=== PATIENT | female | born 1950 | race African-American/Black ===

== ENCOUNTER → 2016-11-09 | Outpatient (CLI) | payer OTHER ==
[~2016-11-09] MED LIST: ALBUTEROL0.09 MG/A2; ALBUTEROL0.09 MG/A2 INH; ALLERGY RELIEF10 M1 PO; BACTRIM DS 8001 TA1 PO; CIPRO250 MG PO; DOXYCYCLINE100 M3 PO; EYE DROPS 15 ML15 ML OP; KEFLEX500 MG PO; LEVOFLOXACIN500 MG PO; LISINOPRIL2.5 MG; PREDNISONE20 MG PO; ROBITUSSIN AC 10 MG/ PO; VICODIN 5/500 505 MG PO
[2016-11-09 11:41] LABS: EST GLOM FILT AFRICAN AMERICAN > 60 ml/min
== END | disposition home or self-care (01) ==
LOC: MRI 10:52
PROVIDERS: Radiology Diagnostic Radiology
DX: R90.89 Other abnormal findings on diagnostic imaging of central nervous system (principal); R20.0 Anesthesia of skin; R51 Headache

== ENCOUNTER 2018-07-20 14:41 | Inpatient (IN) | payer OTHER, MEDICARE ==
[2018-07-20] VITALS (9 sets, daily range): BP systolic 153–200; BP diastolic 81–110
[~2018-07-20] VITALS: Ht 154.9 cm; Wt 82.1 kg
--- NOTE | ~2018-07-20 | EKG ---
[place], [place] ELECTROCARDIOGRAM REPORT NAME: NELL JIMENEZ UNIT #: [id number] ROOM: 519 DOCTOR: VINCE DRAFT REPORT BIRTHDATE: [birth year] [facility] Test Date: 2018-07-20 Test Time: 18:48:13 Pat Name: NELL JIMENEZ Department: Room: [facility] Gender: F [employer] Former: Corinna Zambrano : 1950 Requested By: DESTIN CHOW Order Number: [id number] Reading MD: Elijah Boland MD Measurements Intervals [place] Rate: 102 P: 66 ND: 144 QRS: 58 QRSD: 78 T: 8 QT: 365 QTc: 476 Interpretive Statements Sinus tachycardia Probable left atrial enlargement Borderline T wave abnormalities Baseline wander in lead(s) V6 Electronically Signed On 07-20-2018 18:31:22 PST by Elijah Boland MD CM:EKGRPT:ELECTROCARDIOGRAM REPORT [id number] DESTIN LUCAS DRAFT REPORT DESTIN CHOW DO
[2018-07-20 15:22] LABS: HEMATOCRIT 45.7 % (37.0-47.0); HEMOGLOBIN 14.9 g/dl (12.0-16.0); MEAN CELL VOLUME 89.1 fl (81.0-99.0); MEAN CORPUSCULAR HGB CONC 32.6 g/dl (33.0-37.0); MEAN PLATELET VOLUME 10.4 fl (9.6-12.3); PLATELET COUNT AUTOMATED 219 10*3/uL (130-400); RED BLOOD COUNT 5.13 10*6/uL (4.10-5.10); RED CELL DISTRI WIDTH 13.1 % (0-14.5); WHITE BLOOD COUNT 7.9 10*3/uL (4.8-10.8)
[2018-07-20 15:39] LABS: ALBUMIN 3.7 gm/dl (3.1-4.5); ALKALINE PHOSPHATASE 118 U/L (45-117); BUN 13 mg/dl (7-24); CHLORIDE 108 mmol/L (98-107); CREATININE 0.88 mg/dL (0.55-1.02); LIPASE 50 U/L (73-393); POTASSIUM 3.7 mmol/L (3.5-5.1); SGOT/AST 16 IU/L (3-35); SGPT/ALT 18 U/L (12-78); SODIUM 141 mmol/L (136-145); TOTAL PROTEIN 7.7 gm/dL (6.4-8.2)
[2018-07-20 15:44] LABS: PLATELET SUFFICIENCY NORMAL (NORMAL); TOTAL CELLS COUNTED 100 #CELLS
[2018-07-20] MEDS ORDERED: ZESTORETIC 20-1 EACH PO (16:24)
[2018-07-20 17:03] LABS: BILIRUBIN NEGATIVE (NEGATIVE); BLOOD TRACE-INTACT (NEGATIVE); CLARITY CLEAR (CLEAR); COLOR YELLOW (YELLOW); GLUCOSE NEGATIVE (NEGATIVE); KETONE TRACE (NEGATIVE); LEUKO ESTERASE NEGATIVE (NEGATIVE); NITRITE NEGATIVE (NEGATIVE); PH 5.5 (5.0-9.0); UROBILINOGEN 0.2 E.U./dl (0.2-1.0)
[2018-07-20 17:11] LABS: BACTERIA 1+; WBC 0-2 wbc/hpf (0-5)
[2018-07-21] VITALS: BP 157/88
[2018-07-21 07:33] LABS: BASO % 0.2 % (0.0-1.0); LYMPH # 0.7 10*3/uL (1.3-4.4); LYMPH % 16.2 % (27.0-41.0); MEAN CELL VOLUME 89.5 fl (81.0-99.0); MEAN CORPUSCULAR HGB 28.8 pg (27.0-31.0); MEAN CORPUSCULAR HGB CONC 32.1 g/dl (33.0-37.0); MEAN PLATELET VOLUME 10.6 fl (9.6-12.3); MONO # 0.4 10*3/uL (0.1-1.0); MONO % 9.1 % (3.0-9.0); NEUT % 74.3 % (47.0-73.0); PLATELET COUNT AUTOMATED 204 10*3/uL (130-400); RED BLOOD COUNT 4.38 10*6/uL (4.10-5.10); RED CELL DISTRI WIDTH 13.3 % (0-14.5); WHITE BLOOD COUNT 4.1 10*3/uL (4.8-10.8)
[2018-07-21 07:39] LABS: HEMATOCRIT 39.2 % (37.0-47.0); HEMOGLOBIN 12.6 g/dl (12.0-16.0)
[2018-07-21 07:51] LABS: ALKALINE PHOSPHATASE 83 U/L (45-117); BUN 10 mg/dl (7-24); CHLORIDE 111 mmol/L (98-107); CHOLESTEROL 151 mg/dL (<200); CREATININE 0.89 mg/dL (0.55-1.02); FREE T4 1.04 ng/dl (0.76-1.46); HDL CHOLESTEROL 59 mg/dl (40-60); LDL CHOLESTEROL 79 mg/dL (9-159); PHOSPHOROUS 3.2 mg/dL (2.5-4.9); POTASSIUM 3.4 mmol/L (3.5-5.1); SGOT/AST 12 IU/L (3-35); SGPT/ALT 18 U/L (12-78); SODIUM 142 mmol/L (136-145); TOTAL PROTEIN 6.2 gm/dL (6.4-8.2); TRIGLYCERIDES 63 mg/dl (<150); VLDL CHOLESTEROL 13 mg/dL (6-40)
[2018-07-21 07:56] LABS: THYROID STIM HORMONE (HS) 0.448 uIU/ml (0.358-4.75)
[2018-07-21 08:00] VITALS: BP 122/82
[2018-07-21 08:07] LABS: ACT PARTIAL THROMBO TIME 27.8 SECONDS (20.8-31.5)
[2018-07-21 08:30] LABS: VITAMIN D, 25-HYDROXY 9.4 ng/mL (30-100)
[2018-07-21] MEDS ORDERED: HYDR12.5C PO (10:46)
[2018-07-21] MEDS ORDERED: VITAMIN D50000 UNIT PO (10:46)
[2018-07-21] MEDS ORDERED: AMLODIPINE BESYL5 MG PO (10:46)
[2018-07-21] MEDS ORDERED: CYCLOBENZAPRINE5 M3 PO (10:46)
== END 2018-07-21 11:50 | disposition home or self-care (01) | DRG 392 ==
LOC: ED 14:41 → 5E 17:57 → EDHOLD 17:57 → 5E 18:46
PROVIDERS: Family Medicine; Nurse Practitioner Family
DX: A08.4 Viral intestinal infection, unspecified (principal); I16.1 Hypertensive emergency; I10 Essential (primary) hypertension; E87.8 Other disorders of electrolyte and fluid balance, not elsewhere classified; R73.9 Hyperglycemia, unspecified; R74.8 Abnormal levels of other serum enzymes; R31.9 Hematuria, unspecified; R82.71 Bacteriuria; J45.909 Unspecified asthma, uncomplicated; M19.90 Unspecified osteoarthritis, unspecified site; E66.9 Obesity, unspecified; Z82.49 Family history of ischemic heart disease and other diseases of the circulatory system; Z82.5 Family history of asthma and other chronic lower respiratory diseases; Z98.42 Cataract extraction status, left eye; Z98.41 Cataract extraction status, right eye; Z82.61 Family history of arthritis; Z80.42 Family history of malignant neoplasm of prostate; Z79.899 Other long term (current) drug therapy; Z91.041 Radiographic dye allergy status; Z68.34 Body mass index [BMI] 34.0-34.9, adult

== ENCOUNTER → 2019-03-24 | Outpatient (CLI) | payer OTHER ==
[~2019-03-24] MED LIST changes: +AMLODIPINE BESYL5 MG PO; +CYCLOBENZAPRINE5 M3 PO; +HYDR12.5C PO; +VITAMIN D50000 UNIT PO; +ZESTORETIC 20-1 EACH PO
== END | disposition home or self-care (01) ==
LOC: ORTHO 01:37
DX: M17.11 Unilateral primary osteoarthritis, right knee (principal)

== ENCOUNTER → 2019-04-24 | Outpatient (CLI) | payer OTHER | END | disposition home or self-care (01) | LOC: MRI 10:47 | DX: M17.11 Unilateral primary osteoarthritis, right knee (principal) ==

== ENCOUNTER → 2020-02-06 | Outpatient (CLI) | payer OTHER | END | disposition home or self-care (01) | LOC: COVID19 08:28 | DX: U07.1 COVID-19 (principal) ==

== ENCOUNTER → 2023-12-23 | Outpatient (CLI) | payer OTHER ==
[2023-12-23 12:29] LABS: BUN 11 mg/dl (9-23); CHLORIDE 107 mmol/L (98-107); POTASSIUM 3.8 mmol/L (3.4-5.1)
== END | disposition home or self-care (01) ==
LOC: LAB 09:52
PROVIDERS: Family Medicine; ATTEND Nurse Practitioner Family
DX: E87.5 Hyperkalemia (principal); L65.9 Nonscarring hair loss, unspecified

== ENCOUNTER 2024-07-27 04:38 | Emergency (ER) | payer OTHER ==
[~2024-07-27] VITALS: Wt 72.3 kg
[2024-07-27 06:21] LABS: ALKALINE PHOSPHATASE 113 U/L (46-116); BUN 13 mg/dl (9-23); CHLORIDE 104 mmol/L (98-107); POTASSIUM 3.9 mmol/L (3.4-5.1); SGPT/ALT 12 U/L (5-49); TOTAL PROTEIN 7.1 gm/dL (6.0-8.0)
[2024-07-27] MEDS ORDERED: LORazepam 1 MG TAB PO ONE (06:25)
[2024-07-27 06:30] LABS: BASO # 0.1 10*3/uL (0.0-0.1); EOS # 0.3 10*3/uL (0.0-0.4); EOS % 5.2 % (1.0-4.0); HEMATOCRIT 43.1 % (37.0-47.0); MEAN CELL VOLUME 90.2 fl (81.0-99.0); MEAN CORPUSCULAR HGB CONC 31.1 g/dl (33.0-37.0); MONO # 0.4 10*3/uL (0.1-1.0); MONO % 5.9 % (3.0-9.0); NEUT # 4.1 10*3/uL (2.3-7.9); NEUT % 66.3 % (47.0-73.0); PLATELET COUNT AUTOMATED 272 10*3/uL (130-400); RED BLOOD COUNT 4.78 10*6/uL (4.10-5.10); RED CELL DISTRI WIDTH 12.8 % (0-14.5); WHITE BLOOD COUNT 6.1 10*3/uL (4.8-10.8)
[2024-07-27] MEDS ORDERED: ASPIRIN 325 MG TAB PO ONE (07:40)
[2024-07-27 07:53] VITALS: BP 144/79
[2024-07-27] MEDS ORDERED: Dextrose/Nitroglycerin 250 ML IV SCH (08:00)
[2024-07-27] MEDS ORDERED: ACETAMINOPHEN 500 MG TAB PO ONE (09:10)
== END 2024-07-27 10:40 | disposition short-term general hospital (02) ==
LOC: ED 04:38
PROVIDERS: Internal Medicine
DX: I20.0 Unstable angina (principal); M79.602 Pain in left arm; J45.909 Unspecified asthma, uncomplicated; R06.02 Shortness of breath; R51.9 Headache, unspecified; I10 Essential (primary) hypertension; Z91.041 Radiographic dye allergy status; Z90.89 Acquired absence of other organs

== ENCOUNTER 2024-08-13 09:45 | Emergency (ER) | payer OTHER ==
[~2024-08-13] VITALS: Ht 172.7 cm; Wt 69.9 kg
[2024-08-13] MEDS ORDERED: SODIUM CHLORIDE 0.9% 1,000 ML IV ONE (10:00)
[2024-08-13] MEDS ORDERED: Ondansetron Hydrochloride 4 MG/2 ML VIAL IV ONE (10:05)
[2024-08-13] MEDS ORDERED: MORPHINE Sulfate 2 MG/ML SYR IV ONE (10:05)
[2024-08-13 10:09] VITALS: BP 155/72
[2024-08-13 10:15] LABS: BASO # 0.1 10*3/uL (0.0-0.1); BASO % 0.9 % (0.0-1.0); EOS # 0.4 10*3/uL (0.0-0.4); EOS % 6.7 % (1.0-4.0); HEMATOCRIT 39.7 % (37.0-47.0); MEAN CELL VOLUME 88.6 fl (81.0-99.0); MEAN CORPUSCULAR HGB 28.6 pg (27.0-31.0); MEAN CORPUSCULAR HGB CONC 32.2 g/dl (33.0-37.0); MEAN PLATELET VOLUME 9.9 fl (9.6-12.3); MONO # 0.4 10*3/uL (0.1-1.0); MONO % 6.3 % (3.0-9.0); NEUT # 3.9 10*3/uL (2.3-7.9); NEUT % 67.1 % (47.0-73.0); PLATELET COUNT AUTOMATED 364 10*3/uL (130-400); RED BLOOD COUNT 4.48 10*6/uL (4.10-5.10); RED CELL DISTRI WIDTH 13.6 % (0-14.5); WHITE BLOOD COUNT 5.9 10*3/uL (4.8-10.8)
[2024-08-13 10:37] LABS: ALKALINE PHOSPHATASE 96 U/L (46-116); BUN 10 mg/dl (9-23); CHLORIDE 105 mmol/L (98-107); SGPT/ALT 15 U/L (5-49); TOTAL PROTEIN 7.1 gm/dL (6.0-8.0)
[2024-08-13] MEDS ORDERED: Enoxaparin Sodium 80 MG/0.8 ML SYR SC ONE (11:20)
[2024-08-13] MEDS ORDERED: ASPIRIN, CHEWABLE 81 MG TAB PO ONE (11:20)
== END 2024-08-13 15:56 | disposition short-term general hospital (02) ==
LOC: ED 09:45
PROVIDERS: Emergency Medicine
DX: I21.4 Non-ST elevation (NSTEMI) myocardial infarction (principal); M79.602 Pain in left arm; M25.512 Pain in left shoulder; I10 Essential (primary) hypertension; I25.10 Atherosclerotic heart disease of native coronary artery without angina pectoris; E78.5 Hyperlipidemia, unspecified; J45.909 Unspecified asthma, uncomplicated; M19.90 Unspecified osteoarthritis, unspecified site; Z88.8 Allergy status to other drugs, medicaments and biological substances; Z91.041 Radiographic dye allergy status; Z90.89 Acquired absence of other organs; Z98.890 Other specified postprocedural states

== ENCOUNTER 2024-09-12 13:16 | Emergency (ER) | payer OTHER ==
[~2024-09-12] VITALS: Ht 152.4 cm; Wt 65.8 kg
[2024-09-12 13:31] VITALS: BP 136/76
[2024-09-12 13:52] LABS: BASO # 0.1 10*3/uL (0.0-0.1); BASO % 1.2 % (0.0-1.0); EOS # 0.3 10*3/uL (0.0-0.4); EOS % 6.1 % (1.0-4.0); HEMATOCRIT 39.8 % (37.0-47.0); MEAN CELL VOLUME 91.3 fl (81.0-99.0); MEAN CORPUSCULAR HGB 28.9 pg (27.0-31.0); MEAN CORPUSCULAR HGB CONC 31.7 g/dl (33.0-37.0); MEAN PLATELET VOLUME 11.1 fl (9.6-12.3); MONO # 0.4 10*3/uL (0.1-1.0); MONO % 7.3 % (3.0-9.0); NEUT % 58.8 % (47.0-73.0); PLATELET COUNT AUTOMATED 265 10*3/uL (130-400); RED BLOOD COUNT 4.36 10*6/uL (4.10-5.10); RED CELL DISTRI WIDTH 14.8 % (0-14.5); WHITE BLOOD COUNT 5.1 10*3/uL (4.8-10.8)
[2024-09-12 14:12] LABS: BUN 10 mg/dl (9-23); CHLORIDE 105 mmol/L (98-107); POTASSIUM 3.8 mmol/L (3.4-5.1)
[2024-09-12] MEDS ORDERED: PREDNISONE20 M1 PO (14:38)
== END 2024-09-12 14:46 | disposition home or self-care (01) ==
LOC: ED 13:16
PROVIDERS: Emergency Medicine
DX: R07.89 Other chest pain (principal); R06.02 Shortness of breath; I25.2 Old myocardial infarction; I10 Essential (primary) hypertension; J45.909 Unspecified asthma, uncomplicated; E78.5 Hyperlipidemia, unspecified; Z91.041 Radiographic dye allergy status; Z88.8 Allergy status to other drugs, medicaments and biological substances; Z79.899 Other long term (current) drug therapy; Z90.89 Acquired absence of other organs

== ENCOUNTER 2024-09-16 12:07 | Emergency (ER) | payer OTHER ==
[~2024-09-16] VITALS: Ht 152.4 cm; Wt 66.2 kg
[~2024-09-16 12:07] MED LIST changes: +PREDNISONE20 M1 PO
[2024-09-16 12:27] VITALS: BP 131/74
[2024-09-16] MEDS ORDERED: PANTOPRAZOLE SO40 MG PO (12:29)
[2024-09-16] MEDS ORDERED: ISOSORBIDE DINI30 MG PO (12:29)
[2024-09-16] MEDS ORDERED: VENT7GM INH (12:30)
[2024-09-16] MEDS ORDERED: ASPIRIN ADULT L81 M1 PO (12:31)
[2024-09-16] MEDS ORDERED: LIPITOR80 MG PO (12:31)
[2024-09-16] MEDS ORDERED: TOPROL XL100 MG PO (12:32)
[2024-09-16] MEDS ORDERED: Clopidogrel75 MG PO (12:32)
[2024-09-16 13:25] LABS: BASO % 0.9 % (0.0-1.0); EOS # 0.3 10*3/uL (0.0-0.4); HEMATOCRIT 39.2 % (37.0-47.0); MEAN CELL VOLUME 91.2 fl (81.0-99.0); MEAN CORPUSCULAR HGB 28.6 pg (27.0-31.0); MEAN CORPUSCULAR HGB CONC 31.4 g/dl (33.0-37.0); MEAN PLATELET VOLUME 10.7 fl (9.6-12.3); MONO # 0.4 10*3/uL (0.1-1.0); MONO % 7.5 % (3.0-9.0); NEUT # 2.8 10*3/uL (2.3-7.9); NEUT % 60.2 % (47.0-73.0); PLATELET COUNT AUTOMATED 225 10*3/uL (130-400); RED CELL DISTRI WIDTH 14.7 % (0-14.5); WHITE BLOOD COUNT 4.7 10*3/uL (4.8-10.8)
[2024-09-16 13:44] LABS: BUN 8 mg/dl (9-23); CHLORIDE 107 mmol/L (98-107); POTASSIUM 3.9 mmol/L (3.4-5.1)
== END 2024-09-16 14:20 | disposition home or self-care (01) ==
LOC: ED 12:07
PROVIDERS: Emergency Medicine
DX: R06.02 Shortness of breath (principal); T50.905A Adverse effect of unspecified drugs, medicaments and biological substances, initial encounter; I10 Essential (primary) hypertension; J45.909 Unspecified asthma, uncomplicated; M19.90 Unspecified osteoarthritis, unspecified site; I25.10 Atherosclerotic heart disease of native coronary artery without angina pectoris; Z91.041 Radiographic dye allergy status; Z88.8 Allergy status to other drugs, medicaments and biological substances; Z90.89 Acquired absence of other organs; Z98.890 Other specified postprocedural states; Y92.89 Other specified places as the place of occurrence of the external cause

== ENCOUNTER → 2024-10-11 | Outpatient (CLI) | payer OTHER ==
[~2024-10-11] MED LIST changes: +ASPIRIN ADULT L81 M1 PO; +Clopidogrel75 MG PO; +ISOSORBIDE DINI30 MG PO; +LIPITOR80 MG PO; +PANTOPRAZOLE SO40 MG PO; +TOPROL XL100 MG PO; +VENT7GM INH
== END | disposition home or self-care (01) ==
LOC: CARD 10:13
PROVIDERS: ATTEND Internal Medicine Cardiovascular Disease
DX: I34.0 Nonrheumatic mitral (valve) insufficiency (principal); I10 Essential (primary) hypertension; I31.9 Disease of pericardium, unspecified; E78.5 Hyperlipidemia, unspecified; I25.9 Chronic ischemic heart disease, unspecified; Z95.5 Presence of coronary angioplasty implant and graft; I25.10 Atherosclerotic heart disease of native coronary artery without angina pectoris

== ENCOUNTER → 2025-07-10 | Outpatient (CLI) | payer OTHER | END | disposition home or self-care (01) | LOC: CARD 07-03 12:00 | PROVIDERS: ATTEND Nurse Practitioner Family | DX: I08.0 Rheumatic disorders of both mitral and aortic valves (principal); I25.9 Chronic ischemic heart disease, unspecified; E89.0 Postprocedural hypothyroidism; R07.81 Pleurodynia; R06.02 Shortness of breath; Z95.5 Presence of coronary angioplasty implant and graft ==